=== PATIENT | male | born 1955 | race Caucasian/White ===

== ENCOUNTER 2024-04-04 13:52 | Emergency (ER) | payer OTHER ==
[~2024-04-04] VITALS: Ht 172.7 cm; Wt 103.9 kg
[2024-04-04] MEDS ORDERED: NAPROSYN500 MG PO (15:08)
[2024-04-04] MEDS ORDERED: ACETAMINOPHEN 500 MG TAB PO ONE (15:15)
[2024-04-04] MEDS ORDERED: KETOROLAC TROMETHAMINE 15 MG/ML VIAL IM ONE (15:15)
[2024-04-04 15:23] VITALS: BP 145/79
== END 2024-04-04 15:21 | disposition home or self-care (01) ==
LOC: ED 13:52
DX: S16.1XXA Strain of muscle, fascia and tendon at neck level, initial encounter (principal); V89.2XXA Person injured in unspecified motor-vehicle accident, traffic, initial encounter
CPT/HCPCS: 96372; 99283; A9270; J1885

== ENCOUNTER 2024-05-14 07:58 | Day surgery (SDC) | payer OTHER ==
--- NOTE | 2024-05-01 16:36 | NUR ---
PHONE CALL TO PT MAIL BOX FULL CALLED [phone]
--- NOTE | 2024-05-01 16:51 | NUR ---
PT RETURNED CALL AND IS IN [facility], WILL CALL TUESDAY WHEN HE IS BACK IN TOWN.
[~2024-05-14] VITALS: Ht 172.7 cm; Wt 97.3 kg
[~2024-05-14 07:58] MED LIST: CEFAZOLIN SODIUM 2 GM/20 ML SYR IV SCH; IBLOOD GLUCOSE TEST STRIP 1 EA TEST VI PRN; LACTATED RINGER'S 1,000 ML IV SCH; LIDOCAINE HCL 1% 5 ML SDV INJ ONE; NAPROSYN500 MG PO
[2024-05-14 08:19] VITALS: BP 123/69
[2024-05-14] MEDS ORDERED: KETOROLAC TROMETHAMINE 30 MG/ML VIAL ONE (09:27)
[2024-05-14] MEDS ORDERED: SODIUM CHLORIDE 0.9% 20 ML IV ONE (09:28)
[2024-05-14] MEDS ORDERED: Ropivacaine HCl 0.5% 30 ML VIAL ONE (09:28)
[2024-05-14] MEDS ORDERED: DEXAMETHASONE SOD PHOS 4 MG/ML VIAL ONE ×2 (09:28→09:47)
[2024-05-14] MEDS ORDERED: MIDAZOLAM HCL 2 MG/2 ML VIAL ONE (09:29)
[2024-05-14] MEDS ORDERED: LIDOCAINE HCL 2% 5 ML SDV ONE ×2 (09:29→09:47)
[2024-05-14] MEDS ORDERED: KETOROLAC TROMETHAMINE 15 MG/ML VIAL IV PRN (09:45)
[2024-05-14] MEDS ORDERED: HYDROCODONE/ACETA 5/325 TAB PO PRN (09:45)
[2024-05-14] MEDS ORDERED: fentaNYL citrate 100 MCG/2 ML VIAL ONE (09:47)
[2024-05-14] MEDS ORDERED: ACETAMINOPHEN 1,000 MG/100 ML VIAL ONE (09:47)
[2024-05-14] MEDS ORDERED: ondansetron HCL 4 MG/2 ML VIAL ONE (09:47)
[2024-05-14] MEDS ORDERED: propofoL 200 MG/20 ML VIAL ONE (09:47)
[2024-05-14] MEDS ORDERED: NALOXONE HCL 0.4 MG SYR IV PRN (10:15)
[2024-05-14] MEDS ORDERED: IBLOOD GLUCOSE TEST STRIP 1 EA TEST VI PRN (10:15)
[2024-05-14] MEDS ORDERED: ondansetron HCL 4 MG/2 ML VIAL IV PRN (10:15)
[2024-05-14] MEDS ORDERED: fentaNYL citrate 50 MCG/ML SDV IV PRN (10:15)
[2024-05-14] MEDS ORDERED: MIDAZOLAM HCL 2 MG/2 ML VIAL IV PRN (10:15)
[2024-05-14] MEDS ORDERED: CELECOXIB200 MG PO (10:27)
[2024-05-14] MEDS ORDERED: HYDROCODON-ACE1 EA10 PO (10:27)
--- NOTE | 2024-05-14 10:48 | NUR ---
05/14/24 1048 Kerri Nguyễn 1034-PT ARRIVES TO PACU VIA STRETCHER, RESTING SEMI FOWLERS, PT DROWSY BUT AWAKENS TO VOICE EASILY, DENIES PAIN OR NAUSEA, VSS ON RA. ICE PACK APPLIED TO LT KNEE.
[2024-05-14 10:54] VITALS: BP 104/63
--- NOTE | 2024-05-14 10:57 | NUR ---
1054- PT ARRIVED BACK TO AAOX3, ANSWERING QUESTIONS APPROPRIATELY, AND ABLE TO MAKE HIS NEEDS KNOWN. VS TAKEN. PT WITH SATS STABLE ON RA. IV SITE ASSESSED, PATENT, AND INFUSING LR PER ORDERS. REPORT RECEIVED FROM HEALTH SCIENCE SPECIALIST. SURGICAL SITE VISUALIZED. DRSG APPEARS CDI W/O AND SHADOWING NOTED. ICE IN PLACE TO L KNEE. LLE ELEVATED. PT DENIES NAUSEA OR PAIN WHEN ASKED. REPORTS SOME FEELING OF "PRESSURE" IN L KNEE, BUT NO PAIN. PT DRINKING COFFEE UPON HIS ARRIVAL BACK TO . PT GIVEN ICE WATER AND APPLE SAUCE. ALL QUESTIONS ANSWERED. BED IN LOW POSITION, WHEELS LOCKED, AND BILAT RAILS IN PLACE FOR SAFETY. CALL LIGHT WITHIN PT REACH.
[2024-05-14 11:48] VITALS: BP 113/74
--- NOTE | 2024-05-14 11:58 | NUR ---
1154- PT SITTING UP IN BED SIPPING ON WATER AND COFFEE. PT REPORTS FEELING PRESSURE BUT NOT PAIN AND DENIES NAUSEA. PT WATCHING TV. CALL LIGHT IN REACH. NO QUESTIONS OR CONCERNS. 1155- RN TALKING WITH HEIKE. NO NEED FOR PT TO URINATE NORMAL BATHROOM HABITS OCCUR. 1200- PT GETTING DRESSED INDEPENDENTLY.
--- NOTE | 2024-05-14 12:28 | OR ---
[facility] [address], [place] [address] Signed DATE OF OPERATION: 05/14/2024 SURGEON: Lenore Mcdonald MD PREOPERATIVE DIAGNOSIS: Medial meniscus tear, left knee. POSTOPERATIVE DIAGNOSIS: Medial meniscus tear, left knee. PROCEDURE PERFORMED: Left knee arthroscopy with partial medial meniscectomy. DECK MECHANIC: Christina Singletary PA-C. ANESTHESIA: General. BLOOD LOSS: Minimal. BRIEF HISTORY: Alie is a 68-year-old gentleman with pain and instability in his knee. Nonoperative treatment had been successful and he wished to proceed with arthroscopy. Risks, benefits, and alternatives were discussed and he elected to proceed. Once consent was obtained, he was taken to the operating room. After adequate anesthesia he was placed on operating table. All downside pressure points were well-padded. The right leg was flexed, abducted and externally rotated on a well-padded leg jacob. Left was placed in well-padded proximal thigh leg jacob with no tourniquet. The leg was then prepped and draped in a standard sterile fashion. The portal sites were injected with 0.25% Marcaine with epinephrine. Standard inferolateral and superolateral portals were made. The scope was introduced in the knee. ARTHROSCOPIC FINDINGS: The articular surfaces were intact throughout the knee. There was no significant chondromalacia. Medial and lateral gutters were clear. ACL and PCL were intact. Lateral compartment was intact with a good meniscus. Medial meniscus showed a complex tear extending from the posterior root to the mid medial body. There were horizontal radial and complex components. Electronically Signed By: LENORE MCDONALD MD 05/14/24 1228 PATIENT NAME: ALIE VENTURA OPERATIVE REPORT DATE OF : 53 REPORT #: [id number] PHYSICIAN: LENORE MCDONALD MD PCP: NO PRIMARY CARE PHYSICIAN REPORT IS CONFIDENTIAL AND NOT TO BE RELEASED WITHOUT AUTHORIZATION [facility] [address], [place] [address] Signed DESCRIPTION OF OPERATION: Standard inferomedial portal was established after localizing with a spinal needle. The straight and curved biters were used to trim the meniscus tear back to a stable rim. This was then smoothed using shaver and all debris was evacuated. The scope was then withdrawn. The portals were closed with 3-0 nylon and the knee was injected with 60 mg Toradol. The knee was then dressed with Adaptic, ABD, and Jaden wrap. He tolerated the procedure well. All sponge, needle, and instrument counts were correct. Lenore Mcdonald MD BA/JASONL /[id number] Copies: ~ Electronically Signed By: LENORE MCDONALD MD 05/14/24 1228 PATIENT NAME: ALIE VENTURA OPERATIVE REPORT DATE OF : 53 REPORT #: [id number] PHYSICIAN: LENORE MCDONALD MD PCP: NO PRIMARY CARE PHYSICIAN REPORT IS CONFIDENTIAL AND NOT TO BE RELEASED WITHOUT AUTHORIZATION
--- NOTE | 2024-05-14 12:53 | NUR ---
1215-PROVIDED PT WITH DISCHARGE INSTRUCTIONS. ALL QUESTIONS ANSWERED. WENT OVER POSTOP MEDICATIONS. 1217-PT AMBUALTES TO WHEELCHAIR AND RIDE PROVIDED TO FRONT OF HOSPITAL WHERE FAMILY WAS WAITING WITH THE CAR.
[2024-05-14] MEDS ORDERED: CELECOXIB 200 MG CAP PO SCH (17:00)
[2024-05-14] MEDS ORDERED: SEVOFLURANE 250 ML BTL INH ONE (18:06)
== END 2024-05-14 12:17 | disposition home or self-care (01) ==
LOC: DS 07:58
PROVIDERS: ATTEND Specialist
PROC: 0SBD4ZZ Excision of Left Knee Joint, Percutaneous Endoscopic Approach (ICD-10-PCS; principal; 2024-05-14 10:30)
DX: S83.232A Complex tear of medial meniscus, current injury, left knee, initial encounter (principal); M23.52 Chronic instability of knee, left knee; Z88.0 Allergy status to penicillin; X58.XXXA Exposure to other specified factors, initial encounter
CPT/HCPCS: 01400; 64447; J0131; J0690; J1100; J1885; J2003; J2250; J2405; J2704; J2795; J3010; J7121